=== PATIENT | male | born 1985 | race Caucasian/White ===

== ENCOUNTER 2018-12-25 16:06 | Emergency (ER) | payer SELFPAY ==
[2018-12-25 16:08] VITALS: BP 140/84; PULSE 92; RESP 17; TEMP 37; O2SAT 96; BMI 38.5
--- NOTE | 2018-12-25 16:36 | ED.VISSUMM ---
- ER Visit Summary Date of Service: 12/25/18 Chief Complaint: Left lower leg pain after trying to remove a tattoo with a laser. History of Present Illness: The patient is a 33 M past medical or surgical history. Patient has a tattoo on his left lower leg with a 1 to remove. He bought a laser over the Internet. Says he was misusing multiple times but turned to the highest intensity and basically burned his lower leg about 3 weeks ago. He has had some pain since then and today at there is some redness. He denies any fever or chills. He is not diabetic. Physical Examination: Young male no acute distress vital signs stable afebrile. HEENT exam unremarkable neck nontender no lymphadenopathy. Lungs clear to auscultation bilaterally. Heart regular rhythm no murmur. Abdomen is soft and nontender. Normal bowel sounds no peritoneal signs. Extremities moves all 4. Calves nontender without edema or cords. His left lower leg just above the ankle he has a tattoo of a possible piece. He tried the [place] off using a laser. Several layers of the skin have been removed and sloughed off. There is early cellulitis medially and posterior to this. There is no lymphangitic streaking. There is no abscess or pus. Distally his foot is not involved and neurovascularly intact. There is no inguinal lymphadenopathy. Test Results: None Emergency Department Course and Treatment: Treated as a cellulitis. Keflex 4 times a day for 10 days. First dose given in the ER. Treatment Plan: Keflex 4 times daily for 10 days. Tylenol Motrin for pain. Follow-up if not improving or return if worse. Disposition: Discharge Impression: Acute left lower leg cellulitis and burn secondary to attempted tattoo removal This note was generated with [email or web address] dictation software. It may contain incorrect words, spelling, and punctuation that were not noted in review of the chart prior to signing ED Disposition - Plan for ED Patient: Referrals: Care Physician,No Primary [Primary Care Provider] -
--- NOTE | 2018-12-25 16:38 | ED.DEP ---
ED Disposition - Plan for ED Patient: Disposition: Home or Assisted Living Instructions: Cellulitis Prescriptions: Cephalexin [Keflex] 500 mg PO Q6 #40 cap Prescription Printed Referrals: Gume Rodas MD [STAFF PHYSICIAN] - 1 Week if not improving Additional Instructions: Keep area clean. Apply antibiotic ointment. Follow-up or return if it is looking a lot worse especially if you develop fever, chills and streaks up your leg.
[2018-12-25] MEDS: Cephalexin 250 MG Capsule 500 MG PO (16:41)
== END 2018-12-25 16:47 | disposition home or self-care (01) ==
PROVIDERS: Emergency Provider Emergency Medicine
DX: L03.116 Cellulitis of left lower limb (principal); Z98.890 Other specified postprocedural states; R05 Cough; Z72.0 Tobacco use
CPT/HCPCS: 99283